=== PATIENT | female | born 1990 | race Caucasian/White ===

== ENCOUNTER 2016-09-19 23:24 | Emergency (ER) | payer OTHER ==
[2016-09-20 01:44] LABS: AMORPHOUS SEDIMENT,URINE 2+ /HPF; APPEARANCE,URINE CLOUDY; BILIRUBIN,URINE NEGATIVE (NEGATIVE); GLUCOSE, URINE NEGATIVE (NEGATIVE); KETONES,URINE 80 mg/dL (NEGATIVE); LEUKOCYTE ESTERASE,URINE SMALL (NEGATIVE); NITRITE,URINE NEGATIVE (NEGATIVE); PROTEIN,URINE 100 mg/dL (NEGATIVE); UROBILINOGEN,URINE NEGATIVE mg/dL (<2.0)
[2016-09-20] MEDS ORDERED: NORMAL SALINE 1000 ML 1,000 ML IV ONE (03:54)
[2016-09-20] MEDS ORDERED: CEFTRIAXONE INJ 1000 MG VIAL IV ONE (03:54)
--- NOTE | 2016-09-20 03:56 | ER Document Report ---
ED General - General TRAVEL OUTSIDE OF THE U.S. IN LAST 30 DAYS: No <THU OLVERA - Last Filed: 09/20/16 07:24> <ALVARO DOHERTY - Last Filed: 09/20/16 10:18> - General Chief Complaint: Pelvic Pain Stated Complaint: FLANK/VAGINAL PAIN Notes: Patient is a 25-year-old female presents with complaint of pain that started her left back a few days ago and now has radiated down towards the bladder and the vaginal area. No dysuria. No fevers. Some nausea but no vomiting. No diarrhea. No previous history of kidney stones. No abnormal vaginal discharge. No other complaints at this time. (THU OLVERA) - Related Data Allergies/Adverse Reactions: No Known Allergies Allergy (Verified 09/20/16 00:15) Home Medications: Current Home Medications Phentermine HCl 0.5 cap PO PRN PRN 09/20/16 [History] Past Medical History - Social History Smoking Status: Never Smoker Chew tobacco use (# tins/day): No Frequency of alcohol use: Social Drug Abuse: None Family History: Reviewed & Not Pertinent Renal/ Medical History: Denies: Hx Peritoneal Dialysis - Immunizations Hx Diphtheria, Pertussis, Tetanus Vaccination: Yes <THU OLVERA - Last Filed: 09/20/16 07:24> Review of Systems <THU OLVERA - Last Filed: 09/20/16 07:24> <ALVARO DOHERTY - Last Filed: 09/20/16 10:18> - Review of Systems Notes: My Normal Review Basic REVIEW OF SYSTEMS: CONSTITUTIONAL : Denies fever, chills, or sweats. Denies recent illness. RESPIRATORY: Denies cough, cold, or chest congestion. Denies shortness of breath, difficulty breathing, or wheezing. GASTROINTESTINAL: Left flank pain. Denies nausea, vomiting, or diarrhea. Denies constipation. Last BM: GENITOURINARY: Denies difficulty urinating, painful urination, burning, frequency, or blood in urine. FEMALE GENITOURINARY: Denies vaginal bleeding, abnormal or irregular periods. MUSCULOSKELETAL: Left back pain SKIN: Denies rash or skin lesions. NEUROLOGICAL: Denies altered mental status or loss of consciousness. Denies headache. Denies weakness or paralysis or loss of use of either side. Denies problems with gait or speech. Denies sensory or motor loss. ALL OTHER SYSTEMS REVIEWED AND NEGATIVE. (THU OLVERA) Physical Exam <THU OLVERA - Last Filed: 09/20/16 07:24> <ALVARO DOHERTY - Last Filed: 09/20/16 10:18> - Vital signs Vitals: Temp Pulse Resp BP Pulse Ox 98.4 F 74 16 115/80 100 09/19/16 23:37 09/19/16 23:37 09/19/16 23:37 09/19/16 23:37 09/19/16 23:37 - Notes Notes: General Appearance: Well nourished, alert, cooperative, no acute distress, mild obvious discomfort. Vitals: reviewed, See vital signs table. Head: no swelling or tenderness to the head Eyes: PERRL, EOMI, Conjuctiva clear Mouth: No decreasd moisture Lungs: No wheezing, No rales, No rhonci, No accessory muscle use, good air exchange bilaterally. Heart: Normal rate, Regular rythm, No murmur, no rub Abdomen: Normal BS, soft, No rigidity, No abdominal tenderness, No guarding, no rebound, no abdominal masses, no organomegaly0 Back: Positive Corwin sign on the left. Extremities: strength 5/5 in all extremities, good pulses in all extremities, no swelling or tenderness in the extremities, no edema. Skin: warm, dry, appropriate color, no rash Neuro: speech clear, oriented x 3, normal affect, responds appropriately to questions. (THU OLVERA) Course - Laboratory Result Diagrams: 09/20/16 06:08 09/20/16 06:08 <THU OLVERA - Last Filed: 09/20/16 07:24> - Laboratory Result Diagrams: 09/20/16 06:08 09/20/16 06:08 <ALVARO DOHERTY - Last Filed: 09/20/16 10:18> - Re-evaluation Re-evalutation: 09/20/16 07:24 Patient continues look well. I did speak with Dr. Wilbert Parra, urologist at [facility]. He recommends obtaining a catheter urine to make sure that the urinalysis findings are not consistent with a contaminate urine. He says that if the patient does have white blood cells on urinalysis than we should call back and speak with the hospitalist about transferring there for admission and they will be consulted to place a stent. I did explain the plan to patient and she is agreeable to it. We will obtain a UA. If patient does have white blood cells in urine we will call [facility] back for transfer. (THU OLVERA) 09/20/16 10:16 Sign-out from Dr. Olvera: 25-year-old with 3 mm nonobstructing kidney stone. First urine was contaminated. Second urine does not show any evidence of UTI or infected stone. Patient does not require transfer for urology intervention. We'll send home with pain relief and nausea medicine with instructions to follow up with urology. (ALVARO DOHERTY) - Vital Signs Vital signs: Temp Pulse Resp BP Pulse Ox 97.6 F 80 17 143/91 H 99 09/20/16 02:06 09/20/16 02:06 09/20/16 02:06 09/20/16 02:06 09/20/16 02:06 - Laboratory Laboratory results interpreted by me: 09/20/16 09/20/16 09/20/16 01:00 06:08 06:08 WBC 11.3 H Absolute Neutrophils 8.5 H Chloride 110 H Glucose 73 L Urine Protein 100 H Urine Ketones 80 H Urine Blood LARGE H Ur Leukocyte Esterase SMALL H 09/20/16 08:25 WBC Absolute Neutrophils Chloride Glucose Urine Protein Urine Ketones 20 H Urine Blood LARGE H Ur Leukocyte Esterase TRACE H
[2016-09-20] MEDS ORDERED: KETOROLAC TROMETHAMINE INJ/PF 30 MG/1 ML SDV IV ONE ×2 (05:39→10:16)
[2016-09-20 06:29] LABS: ABSOLUTE EOSINOPHILS # (AUTO) 0.1 10^3/uL (0.0-0.6); ABSOLUTE LYMPHOCYTES (AUTO) 1.8 10^3/uL (0.5-4.7); ABSOLUTE MONOCYTES (AUTO) 0.9 10^3/uL (0.1-1.4); ABSOLUTE NEUT (AUTO) 8.5 10^3/uL (1.7-8.2); BASOPHILS % (AUTO) 0.1 % (0-2); EOSINOPHILS % (AUTO) 0.6 % (0-6); HEMATOCRIT 39.6 % (36.0-47.0); HEMOGLOBIN 13.7 g/dL (12.0-15.5); HGB HCT DIFFERENCE 1.5; LYMPHOCYTES % (AUTO) 16.3 % (13-45); MEAN CORPUSCULAR HEMOGLOBIN 32.1 pg (27.0-33.4); MEAN CORPUSCULAR HGB CONC 34.6 g/dL (32.0-36.0); MEAN CORPUSCULAR VOLUME 93 fl (80-97); MONOCYTES % (AUTO) 7.7 % (3-13); RED BLOOD COUNT 4.27 10^6/uL (3.72-5.28); SEGMENTED NEUTROPHILS % (AUTO) 75.3 % (42-78); WHITE BLOOD COUNT 11.3 10^3/uL (4.0-10.5)
[2016-09-20 06:41] LABS: ANION GAP 12 (5-19); BLOOD UREA NITROGEN 12 mg/dL (7-20); CARBON DIOXIDE 22 mmol/L (22-30); CHLORIDE 110 mmol/L (98-107); CREATININE RESULT 0.84 mg/dL (0.52-1.25); POTASSIUM 3.9 mmol/L (3.6-5.0); SODIUM 143.6 mmol/L (137-145)
[2016-09-20 06:43] LABS: GLUCOSE 73 mg/dL (75-110)
[2016-09-20 09:00] LABS: APPEARANCE,URINE SLIGHTLY-CLOUDY; BILIRUBIN,URINE NEGATIVE (NEGATIVE); GLUCOSE, URINE NEGATIVE (NEGATIVE); KETONES,URINE 20 mg/dL (NEGATIVE); LEUKOCYTE ESTERASE,URINE TRACE (NEGATIVE); NITRITE,URINE NEGATIVE (NEGATIVE); PROTEIN,URINE NEGATIVE (NEGATIVE); URINE SPECIFIC GRAVITY 1.016; UROBILINOGEN,URINE NEGATIVE mg/dL (<2.0)
[2016-09-20 12:05] VITALS: BP 104/55
== END 2016-09-20 12:05 | disposition home or self-care (01) ==
LOC: ER 23:24
DX: N13.2 Hydronephrosis with renal and ureteral calculous obstruction (principal)
CPT/HCPCS: 96376; 99284; 96361; 51701; 96375; 96365; 36415; 85025; 81025; 80048; 81001; 76380; J1885; J0696; J7030

== ENCOUNTER 2016-09-21 06:07 | Emergency (ER) | payer OTHER ==
[2016-09-21] MEDS ORDERED: KETOROLAC TROMETHAMINE INJ/PF 30 MG/1 ML SDV IV ONE (08:00)
[2016-09-21] MEDS ORDERED: NORMAL SALINE 1000 ML 1,000 ML IV ONE ×2 (08:00→09:29)
[2016-09-21] MEDS ORDERED: TAMSULOSIN HCL 0.4 MG CAP.SR.24H PO ONE (08:01)
[2016-09-21 08:32] LABS: ABSOLUTE LYMPHOCYTES (AUTO) 1.5 10^3/uL (0.5-4.7); ABSOLUTE MONOCYTES (AUTO) 0.9 10^3/uL (0.1-1.4); ABSOLUTE NEUT (AUTO) 8.8 10^3/uL (1.7-8.2); EOSINOPHILS % (AUTO) 0.1 % (0-6); HEMATOCRIT 41.5 % (36.0-47.0); HEMOGLOBIN 14.4 g/dL (12.0-15.5); HGB HCT DIFFERENCE 1.7; LYMPHOCYTES % (AUTO) 13.2 % (13-45); MEAN CORPUSCULAR HEMOGLOBIN 32.1 pg (27.0-33.4); MEAN CORPUSCULAR HGB CONC 34.8 g/dL (32.0-36.0); MEAN CORPUSCULAR VOLUME 92 fl (80-97); MONOCYTES % (AUTO) 7.8 % (3-13); RED BLOOD COUNT 4.49 10^6/uL (3.72-5.28); RED CELL DISTRIBUTION WIDTH 12.9 % (11.5-14.0); SEGMENTED NEUTROPHILS % (AUTO) 78.9 % (42-78); WHITE BLOOD COUNT 11.1 10^3/uL (4.0-10.5)
[2016-09-21 08:44] LABS: ANION GAP 13 (5-19); BLOOD UREA NITROGEN 9 mg/dL (7-20); CALCIUM 9.2 mg/dL (8.4-10.2); CARBON DIOXIDE 22 mmol/L (22-30); CHLORIDE 99 mmol/L (98-107); CREATININE RESULT 1.01 mg/dL (0.52-1.25); GLUCOSE 90 mg/dL (75-110); POTASSIUM 4.2 mmol/L (3.6-5.0); SODIUM 133.8 mmol/L (137-145)
[2016-09-21 09:23] LABS: APPEARANCE,URINE CLEAR; BILIRUBIN,URINE NEGATIVE (NEGATIVE); GLUCOSE, URINE NEGATIVE (NEGATIVE); KETONES,URINE 20 mg/dL (NEGATIVE); LEUKOCYTE ESTERASE,URINE NEGATIVE (NEGATIVE); NITRITE,URINE NEGATIVE (NEGATIVE); PROTEIN,URINE NEGATIVE (NEGATIVE); URINE SPECIFIC GRAVITY 1.009; UROBILINOGEN,URINE NEGATIVE mg/dL (<2.0)
--- NOTE | 2016-09-21 10:20 | ER Document Report ---
ED General - General Chief Complaint: Flank Pain Stated Complaint: FLANK PAIN TRAVEL OUTSIDE OF THE U.S. IN LAST 30 DAYS: No - HPI Patient complains to provider of: left flank pain Notes: Patient was seen day prior to her arrival and diagnosed with a kidney stone left side. Patient coming back stating that she is becoming sick with taking the pain medication still having some nausea vomiting patient states that she still is also having pain. Denies any fevers. Patient denies seeing any passage of the stone. - Related Data Allergies/Adverse Reactions: No Known Allergies Allergy (Verified 09/20/16 00:15) Past Medical History - Social History Smoking Status: Never Smoker Chew tobacco use (# tins/day): No Frequency of alcohol use: Occasional Drug Abuse: None Family History: Reviewed & Not Pertinent Patient has suicidal ideation: No Patient has homicidal ideation: No Renal/ Medical History: Denies: Hx Peritoneal Dialysis Surgical Hx: Negative - Immunizations Hx Diphtheria, Pertussis, Tetanus Vaccination: Yes Review of Systems - Review of Systems Constitutional: No symptoms reported EENT: No symptoms reported Cardiovascular: No symptoms reported Respiratory: No symptoms reported Gastrointestinal: No symptoms reported Genitourinary: Flank pain Female Genitourinary: No symptoms reported Musculoskeletal: No symptoms reported Skin: No symptoms reported Hematologic/Lymphatic: No symptoms reported Neurological/Psychological: No symptoms reported -: Yes All other systems reviewed and negative Physical Exam - Vital signs Vitals: Temp Pulse Resp BP Pulse Ox 97.5 F 82 20 125/88 H 99 09/21/16 06:22 09/21/16 06:22 09/21/16 06:22 09/21/16 06:22 09/21/16 06:22 Interpretation: Normal - General General appearance: Appears well, Alert - HEENT Head: Normocephalic, Atraumatic Eyes: Normal Pupils: PERRL - Respiratory Respiratory status: No respiratory distress Chest status: Nontender Breath sounds: Normal Chest palpation: Normal - Cardiovascular Rhythm: Regular Heart sounds: Normal auscultation Murmur: No - Abdominal Inspection: Normal Distension: No distension Bowel sounds: Normal Tenderness: Nontender Organomegaly: No organomegaly - Back Back: Normal, Nontender - Extremities General upper extremity: Normal inspection, Nontender, Normal color, Normal ROM , Normal temperature General lower extremity: Normal inspection, Nontender, Normal color, Normal ROM , Normal temperature, Normal weight bearing. No: Salomón's sign - Neurological Neuro grossly intact: Yes Cognition: Normal Orientation: AAOx4 [place] Coma Scale Eye Opening: Spontaneous [place] Coma Scale Verbal: Oriented [place] Coma Scale Motor: Obeys Commands [place] Coma Scale Total: 15 Speech: Normal Motor strength normal: LUE, RUE, LLE, RLE Sensory: Normal - Psychological Associated symptoms: Normal affect, Normal mood - Skin Skin Temperature: Warm Skin Moisture: Dry Skin Color: Normal Course - Re-evaluation Re-evalutation: 09/21/16 15:30 Lab work again redemonstrates no signs of sepsis septic stone UTI. Long discussion with patient that she does have a kidney stone no continue to cause pain to old the stone passes. Recommended the patient continue to take her pain medications. As prescribed will give the patient nausea medication and Flomax. Patient was encouraged to continue to drink water to hydrate herself and also aid in passage of the stone. - Vital Signs Vital signs: Temp Pulse Resp BP Pulse Ox 97.9 F 70 18 114/90 H 100 09/21/16 10:48 09/21/16 10:48 09/21/16 10:48 09/21/16 10:48 09/21/16 10:48 - Laboratory Result Diagrams: 09/21/16 08:09 09/21/16 08:09 Laboratory results interpreted by me: 09/21/16 09/21/16 09/21/16 08:09 08:09 08:09 WBC 11.1 H Seg Neutrophils % 78.9 H Absolute Neutrophils 8.8 H Sodium 133.8 L Urine Ketones 20 H Urine Blood SMALL H Discharge - Discharge Clinical Impression: Kidney stone Condition: Good Disposition: HOME, SELF-CARE Instructions: Kidney Stone ([facility]) Additional Instructions: Take medication as prescribed. Prescriptions: Ibuprofen [Motrin 600 Mg Tablet] 600 mg PO TID #30 tablet Promethazine HCl [Phenergan 25 mg Tablet] 1 - 2 tab PO Q6H PRN #15 tablet PRN Reason: Tamsulosin HCl [Flomax 0.4 mg Cap.sr] 0.4 mg PO DAILY #7 cap.sr.24h
[2016-09-21 10:49] VITALS: BP 114/90
== END 2016-09-21 10:47 | disposition home or self-care (01) ==
LOC: ER 06:07
DX: N20.0 Calculus of kidney (principal); R10.9 Unspecified abdominal pain; R11.2 Nausea with vomiting, unspecified
CPT/HCPCS: 99283; 96361; 51701; 96374; 36415; 85025; 80048; 81001; J1885; J7030

== ENCOUNTER 2017-06-12 17:31 | Emergency (ER) | payer OTHER ==
[2017-06-12 19:10] LABS: APPEARANCE,URINE SLIGHTLY-CLOUDY; BILIRUBIN,URINE NEGATIVE (NEGATIVE); GLUCOSE, URINE NEGATIVE (NEGATIVE); KETONES,URINE 80 mg/dL (NEGATIVE); LEUKOCYTE ESTERASE,URINE NEGATIVE (NEGATIVE); NITRITE,URINE NEGATIVE (NEGATIVE); PROTEIN,URINE NEGATIVE (NEGATIVE); URINE SPECIFIC GRAVITY 1.028; UROBILINOGEN,URINE NEGATIVE mg/dL (<2.0)
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
[2017-06-12] MEDS ORDERED: CEFTRIAXONE INJ 250 MG VIAL IM ONE (19:22)
[2017-06-12] MEDS ORDERED: AZITHROMYCIN 250 MG TABLET PO ONE (19:23)
[2017-06-12 19:24] LABS: URINE BARBITURATES SCREEN NEGATIVE; URINE METHADONE SCREEN NEGATIVE; URINE OPIATES LOW NEGATIVE; URINE PHENCYCLIDINE SCREEN NEGATIVE
[2017-06-12] MEDS ORDERED: LIDOCAINE 1% INJ-PF (10 MG/ML) 30 ML SDV INJ ONE (19:42)
[2017-06-12] MEDS ORDERED: ONDANSETRON 4 MG TAB.RAPDIS PO ONE (19:42)
[2017-06-12] MEDS ORDERED: METRONIDAZOLE 500 MG TABLET PO ONE (23:06)
[2017-06-13 01:22] LABS: ABSOLUTE EOSINOPHILS # (AUTO) 0.1 10^3/uL (0.0-0.6); ABSOLUTE LYMPHOCYTES (AUTO) 1.7 10^3/uL (0.5-4.7); ABSOLUTE MONOCYTES (AUTO) 0.8 10^3/uL (0.1-1.4); ABSOLUTE NEUT (AUTO) 7.3 10^3/uL (1.7-8.2); BASOPHILS % (AUTO) 0.2 % (0-2); EOSINOPHILS % (AUTO) 0.6 % (0-6); HEMATOCRIT 45.8 % (36.0-47.0); HEMOGLOBIN 15.8 g/dL (12.0-15.5); HGB HCT DIFFERENCE 1.6; LYMPHOCYTES % (AUTO) 17.3 % (13-45); MEAN CORPUSCULAR HEMOGLOBIN 32.1 pg (27.0-33.4); MEAN CORPUSCULAR HGB CONC 34.5 g/dL (32.0-36.0); MEAN CORPUSCULAR VOLUME 93 fl (80-97); MONOCYTES % (AUTO) 7.7 % (3-13); RED BLOOD COUNT 4.93 10^6/uL (3.72-5.28); RED CELL DISTRIBUTION WIDTH 12.4 % (11.5-14.0); SEGMENTED NEUTROPHILS % (AUTO) 74.2 % (42-78); WHITE BLOOD COUNT 9.8 10^3/uL (4.0-10.5)
[2017-06-13 01:28] LABS: ALANINE AMINOTRANSFERASE 27 U/L (9-52); ALBUMIN 4.3 g/dL (3.5-5.0); ALCOHOL < 10 mg/dL (NONE DETECTED); ALKALINE PHOSPHATASE 78 U/L (38-126); ANION GAP 16 (5-19); ASPARTATE AMINO TRANSFERASE 17 U/L (14-36); BILIRUBIN,DIRECT 0.2 mg/dL (0.0-0.4); BILIRUBIN,TOTAL 0.7 mg/dL (0.2-1.3); BLOOD UREA NITROGEN 11 mg/dL (7-20); CALCIUM 9.6 mg/dL (8.4-10.2); CARBON DIOXIDE 21 mmol/L (22-30); CHLORIDE 107 mmol/L (98-107); GLUCOSE 82 mg/dL (75-110); POTASSIUM 3.9 mmol/L (3.6-5.0); SODIUM 143.6 mmol/L (137-145); TOTAL PROTEIN 7.2 g/dL (6.3-8.2)
--- NOTE | 2017-06-13 06:47 | EKG REPORT ---
SEVERITY:- BORDERLINE ECG - SINUS ARRHYTHMIA, RATE [id number] PROBABLE LEFT ATRIAL ABNORMALITY : Confirmed by: Lowell Fay 13-Jun-2017 06:46:54
--- NOTE | 2017-06-13 09:25 | ER Document Report ---
Doctor's Note Notes: 06/13/17 10:58 As the rounding physician for our psychiatric patients, I have reviewed the chart, vitals, lab work. Patient has been examined and noted to be stable in no distress, resting with fdather in the room. Pt has no complaints . I am awaiting mental health in [place].
[2017-06-13] MEDS ORDERED: METRONIDAZOLE 500 MG TABLET PO SCH (10:00)
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
[2017-06-13 11:21] VITALS: BP 98/58
== END 2017-06-13 11:22 | disposition home or self-care (01) ==
LOC: ER 17:31
DX: T76.21XA Adult sexual abuse, suspected, initial encounter (principal); N76.0 Acute vaginitis; B96.89 Other specified bacterial agents as the cause of diseases classified elsewhere; F17.200 Nicotine dependence, unspecified, uncomplicated; E03.9 Hypothyroidism, unspecified; Z87.442 Personal history of urinary calculi; Z97.5 Presence of (intrauterine) contraceptive device; Z63.0 Problems in relationship with spouse or partner
CPT/HCPCS: 93005; 99285; 96372; 36415; 87086; 87210; 80307 ×4; 85025; 81025; 80053; 81001; 87491; 87591; 93010; S0119; J3490; J0696